=== PATIENT | female | born 1980 | race African-American/Black ===

== ENCOUNTER 2020-11-09 16:34 | Inpatient (IN) | payer OTHER ==
[2020-11-09 17:59] VITALS: BMI 27.4
[2020-11-09] MEDS ORDERED: NICOTINE POLACRILEX 2 MG GUM BUC PRN (20:40)
[2020-11-09] MEDS ORDERED: BISMUTH SUBSALICYLATE 524 MG/30 ML PO PRN (20:40)
[2020-11-09] MEDS ORDERED: METHOCARBAMOL 500 MG TABLET PO PRN (20:40)
[2020-11-09] MEDS ORDERED: ONDANSETRON *ODT* 4 MG TABLET SL PRN (20:40)
[2020-11-09] MEDS ORDERED: MAG HYDROX/AL HYDROX/SIMETH 30 ML UNIT-DOSE CUP PO PRN (20:40)
[2020-11-09] MEDS ORDERED: IBUPROFEN 400 MG TABLET (FP) PO PRN (20:40)
[2020-11-09] MEDS ORDERED: MENTHOL/PHENOL 1 EACH UD MM PRN (20:40)
[2020-11-09] MEDS ORDERED: ACETAMINOPHEN 325 MG TABLET (FP) PO PRN ×2 (20:40)
[2020-11-09] MEDS ORDERED: MAGNESIUM CITRATE 300 ML BOTTLE PO PRN (20:40)
[2020-11-09] MEDS ORDERED: MAGNESIUM HYDROX 2400MG/30ML ORAL SUSPENSION 30 ML CUP PO PRN (20:40)
[2020-11-09] MEDS ORDERED: diazePAM 5 MG TABLET PO PRN (20:43)
[2020-11-09] MEDS ORDERED: methaDONE HCL 10 MG TABLET (FOR DETOX USE ONLY) PO ONE (20:43)
[2020-11-09] MEDS ORDERED: cloNIDine HCL 0.1 MG TABLET PO PRN (20:43)
[2020-11-10] MEDS: MELATONIN 5 MG TABLETS PO SCH ×2 (00:12→22:27)
[2020-11-10] MEDS: THIAMINE HCL 100 MG TABLET (FP) PO SCH ×2 (00:13→22:26)
[2020-11-10] MEDS: diazePAM 5 MG TABLET PO SCH ×5 (00:23→22:27)
[2020-11-10] MEDS ORDERED: methaDONE HCL 10 MG TABLET (FOR DETOX USE ONLY) ONE (09:19)
[2020-11-10] MEDS: PRENATAL VITAMINS W/ FOLIC ACID TABLET (FP) PO SCH (10:40)
[2020-11-10] MEDS: NICOTINE 21 MG/24 HOURS TOPICAL PATCH TD SCH (10:43)
[2020-11-10 11:34] LABS: HEMATOCRIT 32.5 % (32.4-45.2); HEMOGLOBIN 10.8 GM/dL (10.7-15.3); MCH 27.7 pg (25.7-33.7); MCHC 33.2 g/dl (32.0-36.0); MEAN CELL VOLUME 83.5 fl (80-96); PLATELET COUNT 161 10^3/uL (134-434); RBC 3.89 M/mm3 (3.60-5.2); RDW 14.1 % (11.6-15.6); WHITE BLOOD COUNT 4.8 K/mm3 (4.0-10.0)
[2020-11-10 11:37] LABS: BLOOD UREA NITROGEN 7.8 mg/dL (7-18); CALCIUM 8.2 mg/dL (8.5-10.1)
[2020-11-10 11:38] LABS: ALBUMIN 2.8 g/dl (3.4-5.0)
[2020-11-10 11:41] LABS: CREATININE 0.8 mg/dL (0.55-1.3)
[2020-11-10 11:43] LABS: BILIRUBIN,TOTAL 0.1 mg/dL (0.2-1); TOT PROT 5.9 g/dl (6.4-8.2)
[2020-11-10] MEDS: metroNIDAZOLE 0.75% VAGINAL GEL 70 GM TUBE VG SCH (22:26)
[2020-11-11] MEDS: diazePAM 5 MG TABLET PO SCH ×3 (06:23→22:11)
[2020-11-11] MEDS ORDERED: methaDONE HCL 10 MG TABLET (FOR DETOX USE ONLY) PO ONE (10:00)
[2020-11-11] MEDS: PRENATAL VITAMINS W/ FOLIC ACID TABLET (FP) PO SCH (10:24)
[2020-11-11] MEDS ORDERED: NICOTINE 10 MG CARTRIDGE (INHALER) IH SCH (10:30)
[2020-11-11] MEDS: NICOTINE 21 MG/24 HOURS TOPICAL PATCH TD SCH (10:42)
[2020-11-11] MEDS ORDERED: NICOTINE 10 MG CARTRIDGE (INHALER) IH PRN (10:53)
[2020-11-11] MEDS: metroNIDAZOLE 0.75% VAGINAL GEL 70 GM TUBE VG SCH (22:12)
[2020-11-11] MEDS: MELATONIN 5 MG TABLETS PO SCH (22:12)
[2020-11-11] MEDS: THIAMINE HCL 100 MG TABLET (FP) PO SCH (22:12)
[2020-11-12] MEDS: diazePAM 5 MG TABLET PO SCH ×2 (05:43→19:17)
[2020-11-12] MEDS ORDERED: methaDONE HCL 10 MG TABLET (FOR DETOX USE ONLY) ONE (09:48)
[2020-11-12] MEDS ORDERED: cloNIDine HCL 0.1 MG TABLET PO PRN (10:04)
[2020-11-12] MEDS: hydrOXYzine PAMOATE 25 MG CAPSULE (FP) PO PRN ×2 (11:11→18:06)
[2020-11-12] MEDS: PRENATAL VITAMINS W/ FOLIC ACID TABLET (FP) PO SCH (11:11)
[2020-11-12 12:17] LABS: URINE APPEARANCE CLEAR; URINE BILIRUBIN NEGATIVE (NEGATIVE); URINE COLOR YELLOW; URINE GLUCOSE (UA) NEGATIVE (NEGATIVE); URINE KETONE NEGATIVE (NEGATIVE); URINE LEUK ESTERASE NEGATIVE (NEGATIVE); URINE NITRITE NEGATIVE (NEGATIVE); URINE PROTEIN NEGATIVE (NEGATIVE); URINE UROBILINOGEN 0.2 mg/dL (0.2-1.0)
[2020-11-12 12:18] LABS: EPI CELLS 7 /uL (0-25.1); HYALINE CASTS 0 /uL (0-3.1); URINE BACTERIA 15 /uL (0-1359); URINE RBC 3 /uL (0-23.9); URINE WBC 4 /uL (0-25.8)
[2020-11-12] MEDS: MELATONIN 5 MG TABLETS PO SCH (22:29)
[2020-11-12] MEDS: THIAMINE HCL 100 MG TABLET (FP) PO SCH (22:29)
[2020-11-12] MEDS: metroNIDAZOLE 0.75% VAGINAL GEL 70 GM TUBE VG SCH (23:26)
[2020-11-13] MEDS ORDERED: diazePAM 5 MG TABLET PO ONE (06:00)
[2020-11-13] MEDS ORDERED: methaDONE HCL 10 MG TABLET (FOR DETOX USE ONLY) PO ONE (10:00)
[2020-11-13] MEDS: PRENATAL VITAMINS W/ FOLIC ACID TABLET (FP) PO SCH (10:12)
[2020-11-13 13:38] VITALS: TEMP 97.2
[2020-11-13 17:24] VITALS: BP 100/65; PULSE 69
== END 2020-11-13 18:45 | disposition left against medical advice (07) | DRG 770 ==
LOC: YASAS 16:34 → Y3N 22:40
PROVIDERS: ADMIT Allergy & Immunology; ATTEND Allergy & Immunology
PROC: HZ2ZZZZ Detoxification Services for Substance Abuse Treatment (ICD-10-PCS; principal; 2020-11-09)
DX: F10.230 Alcohol dependence with withdrawal, uncomplicated (principal); F11.23 Opioid dependence with withdrawal; F13.230 Sedative, hypnotic or anxiolytic dependence with withdrawal, uncomplicated; F14.10 Cocaine abuse, uncomplicated; F17.210 Nicotine dependence, cigarettes, uncomplicated; F41.9 Anxiety disorder, unspecified; F19.280 Other psychoactive substance dependence with psychoactive substance-induced anxiety disorder; F19.282 Other psychoactive substance dependence with psychoactive substance-induced sleep disorder; F19.24 Other psychoactive substance dependence with psychoactive substance-induced mood disorder; F32.9 Major depressive disorder, single episode, unspecified; K21.9 Gastro-esophageal reflux disease without esophagitis; Z56.0 Unemployment, unspecified; Z88.8 Allergy status to other drugs, medicaments and biological substances
CPT/HCPCS: 36415; 80053; 81003; 85027; 86780; 93005; 93010; C9803; U0003; U0005

== ENCOUNTER 2020-12-17 11:39 | Inpatient (IN) | payer OTHER ==
[2020-12-17] MEDS ORDERED: BISMUTH SUBSALICYLATE 262 MG/15 ML BTL PO PRN (12:17)
[2020-12-17] MEDS ORDERED: ACETAMINOPHEN 325 MG TABLET (FP) PO PRN ×2 (12:17)
[2020-12-17] MEDS ORDERED: MAGNESIUM HYDROX 2400MG/30ML ORAL SUSPENSION 30 ML CUP PO PRN (12:17)
[2020-12-17] MEDS ORDERED: MENTHOL/PHENOL 1 EACH UD MM PRN (12:17)
[2020-12-17] MEDS ORDERED: ONDANSETRON *ODT* 4 MG TABLET SL PRN (12:17)
[2020-12-17] MEDS ORDERED: IBUPROFEN 400 MG TABLET (FP) PO PRN (12:17)
[2020-12-17] MEDS ORDERED: MAGNESIUM CITRATE 300 ML BOTTLE PO PRN (12:17)
[2020-12-17] MEDS ORDERED: methaDONE HCL 10 MG TABLET (FOR DETOX USE ONLY) PO ONE (12:17)
[2020-12-17] MEDS ORDERED: cloNIDine HCL 0.1 MG TABLET PO PRN (12:17)
[2020-12-17] MEDS ORDERED: LORazepam 1 MG TABLET PO PRN (12:17)
[2020-12-17 13:04] VITALS: BMI 28.1
[2020-12-17] MEDS ORDERED: hydrOXYzine PAMOATE 25 MG CAPSULE (FP) PO SCH (14:00)
[2020-12-17] MEDS: NICOTINE 14 MG/24 HOURS TOPICAL PATCH TD SCH (15:26)
[2020-12-17] MEDS: PRENATAL VITAMINS W/ FOLIC ACID TABLET (FP) PO SCH (15:26)
[2020-12-17 17:34] LABS: HEMATOCRIT 38.9 % (32.4-45.2); HEMOGLOBIN 12.7 GM/dL (10.7-15.3); MCHC 32.8 g/dl (32.0-36.0); MEAN CELL VOLUME 85.4 fl (80-96); MEAN PLT VOLUME 8.9 fl (7.5-11.1); PLATELET COUNT 224 10^3/uL (134-434); RBC 4.56 M/mm3 (3.60-5.2); RDW 13.8 % (11.6-15.6); WHITE BLOOD COUNT 5.4 K/mm3 (4.0-10.0)
[2020-12-17] MEDS: LORazepam 2 MG TABLET PO SCH ×2 (17:43→22:20)
[2020-12-17] MEDS: NICOTINE 10 MG CARTRIDGE (INHALER) IH PRN (17:45)
[2020-12-17 18:05] LABS: ALBUMIN 3.7 g/dl (3.4-5.0); CALCIUM 9.2 mg/dL (8.5-10.1)
[2020-12-17 18:06] LABS: BLOOD UREA NITROGEN 6.9 mg/dL (7-18)
[2020-12-17 18:09] LABS: CREATININE 0.8 mg/dL (0.55-1.3)
[2020-12-17 18:10] LABS: BILIRUBIN,TOTAL 0.2 mg/dL (0.2-1); TOT PROT 7.5 g/dl (6.4-8.2)
[2020-12-17] MEDS: QUEtiapine FUMARATE 50 MG TABLET PO SCH (22:20)
[2020-12-17] MEDS: THIAMINE HCL 100 MG TABLET (FP) PO SCH (22:20)
[2020-12-17] MEDS: MELATONIN 5 MG TABLETS PO SCH (22:20)
[2020-12-18] MEDS: LORazepam 2 MG TABLET PO SCH ×4 (06:05→22:15)
[2020-12-18] MEDS ORDERED: methaDONE HCL 10 MG TABLET (FOR DETOX USE ONLY) ONE (10:02)
[2020-12-18] MEDS: NICOTINE 14 MG/24 HOURS TOPICAL PATCH TD SCH (10:24)
[2020-12-18] MEDS: PRENATAL VITAMINS W/ FOLIC ACID TABLET (FP) PO SCH (10:25)
[2020-12-18] MEDS: hydrOXYzine PAMOATE 25 MG CAPSULE (FP) PO PRN (22:15)
[2020-12-18] MEDS: THIAMINE HCL 100 MG TABLET (FP) PO SCH (22:15)
[2020-12-18] MEDS: MELATONIN 5 MG TABLETS PO SCH (22:15)
[2020-12-18] MEDS: QUEtiapine FUMARATE 50 MG TABLET PO SCH (22:15)
[2020-12-19] MEDS: LORazepam 1 MG TABLET PO SCH ×4 (06:38→22:18)
[2020-12-19] MEDS ORDERED: methaDONE HCL 10 MG TABLET (FOR DETOX USE ONLY) PO ONE (10:00)
[2020-12-19] MEDS: NICOTINE 14 MG/24 HOURS TOPICAL PATCH TD SCH (10:43)
[2020-12-19] MEDS: PRENATAL VITAMINS W/ FOLIC ACID TABLET (FP) PO SCH (10:43)
[2020-12-19] MEDS: MAG HYDROX/AL HYDROX/SIMETH 30 ML UNIT-DOSE CUP PO PRN (17:36)
[2020-12-19] MEDS: hydrOXYzine PAMOATE 25 MG CAPSULE (FP) PO PRN (17:36)
[2020-12-19] MEDS: NICOTINE 10 MG CARTRIDGE (INHALER) IH PRN (22:17)
[2020-12-19] MEDS: MELATONIN 5 MG TABLETS PO SCH (22:18)
[2020-12-19] MEDS: QUEtiapine FUMARATE 50 MG TABLET PO SCH (22:18)
[2020-12-19] MEDS: THIAMINE HCL 100 MG TABLET (FP) PO SCH (22:18)
[2020-12-19] MEDS: METHOCARBAMOL 500 MG TABLET PO PRN (22:20)
[2020-12-20] MEDS ORDERED: LORazepam 0.5 MG TABLET PO PRN
[2020-12-20] MEDS: LORazepam 0.5 MG TABLET PO SCH ×4 (07:02→22:14)
[2020-12-20] MEDS ORDERED: methaDONE HCL 10 MG TABLET (FOR DETOX USE ONLY) ONE (09:33)
[2020-12-20] MEDS: PRENATAL VITAMINS W/ FOLIC ACID TABLET (FP) PO SCH (10:22)
[2020-12-20] MEDS: hydrOXYzine PAMOATE 25 MG CAPSULE (FP) PO PRN (10:24)
[2020-12-20] MEDS: NICOTINE 14 MG/24 HOURS TOPICAL PATCH TD SCH (10:25)
[2020-12-20] MEDS: NICOTINE 10 MG CARTRIDGE (INHALER) IH PRN (17:44)
[2020-12-20] MEDS: QUEtiapine FUMARATE 50 MG TABLET PO SCH (22:13)
[2020-12-20] MEDS: THIAMINE HCL 100 MG TABLET (FP) PO SCH (22:13)
[2020-12-20] MEDS: MELATONIN 5 MG TABLETS PO SCH (22:13)
[2020-12-20] MEDS: METHOCARBAMOL 500 MG TABLET PO PRN (22:14)
[2020-12-21] MEDS ORDERED: LORazepam 0.5 MG TABLET PO ONE (05:00)
[2020-12-21] MEDS ORDERED: methaDONE HCL 10 MG TABLET (FOR DETOX USE ONLY) PO ONE (10:00)
[2020-12-21] MEDS: NICOTINE 14 MG/24 HOURS TOPICAL PATCH TD SCH (10:10)
[2020-12-21] MEDS: PRENATAL VITAMINS W/ FOLIC ACID TABLET (FP) PO SCH (10:10)
[2020-12-21] MEDS: MAG HYDROX/AL HYDROX/SIMETH 30 ML UNIT-DOSE CUP PO PRN (10:11)
[2020-12-21] MEDS: hydrOXYzine PAMOATE 25 MG CAPSULE (FP) PO PRN (10:13)
[2020-12-21] MEDS: LORATADINE 10 MG TABLET PO SCH (11:09)
[2020-12-21] MEDS: QUEtiapine FUMARATE 50 MG TABLET PO SCH (22:10)
[2020-12-21] MEDS: MELATONIN 5 MG TABLETS PO SCH (22:10)
[2020-12-21] MEDS: THIAMINE HCL 100 MG TABLET (FP) PO SCH (22:10)
[2020-12-22] MEDS: NICOTINE 10 MG CARTRIDGE (INHALER) IH PRN (08:24)
[2020-12-22 09:19] VITALS: BP 101/65; PULSE 77; TEMP 97.1
[2020-12-22] MEDS: LORATADINE 10 MG TABLET PO SCH (10:42)
[2020-12-22] MEDS: NICOTINE 14 MG/24 HOURS TOPICAL PATCH TD SCH (10:42)
[2020-12-22] MEDS: PRENATAL VITAMINS W/ FOLIC ACID TABLET (FP) PO SCH (10:42)
== END 2020-12-22 12:48 | disposition other institution (70) | DRG 773 ==
LOC: YASAS 11:39 → Y3N 13:19
PROVIDERS: ADMIT Allergy & Immunology; ATTEND Allergy & Immunology
PROC: HZ2ZZZZ Detoxification Services for Substance Abuse Treatment (ICD-10-PCS; principal; 2020-12-17)
DX: F11.23 Opioid dependence with withdrawal (principal); F10.230 Alcohol dependence with withdrawal, uncomplicated; F13.230 Sedative, hypnotic or anxiolytic dependence with withdrawal, uncomplicated; F14.20 Cocaine dependence, uncomplicated; F17.210 Nicotine dependence, cigarettes, uncomplicated; F19.280 Other psychoactive substance dependence with psychoactive substance-induced anxiety disorder; F19.282 Other psychoactive substance dependence with psychoactive substance-induced sleep disorder; F19.24 Other psychoactive substance dependence with psychoactive substance-induced mood disorder; F32.9 Major depressive disorder, single episode, unspecified; F41.9 Anxiety disorder, unspecified; K21.9 Gastro-esophageal reflux disease without esophagitis; K29.70 Gastritis, unspecified, without bleeding; Z88.8 Allergy status to other drugs, medicaments and biological substances
CPT/HCPCS: 36415; 80053; 81025; 85027; 86780; 87086; C9803; U0003; U0005

== ENCOUNTER 2020-12-22 13:29 | Inpatient (IN) | payer OTHER ==
[2020-12-22] MEDS ORDERED: P-EPHED 60MG/TRIPROLIDI 2.5MG TABLET PO PRN (13:46)
[2020-12-22] MEDS ORDERED: MAGNESIUM HYDROX 2400MG/30ML ORAL SUSPENSION 30 ML CUP PO PRN (13:46)
[2020-12-22] MEDS ORDERED: MAGNESIUM CITRATE 300 ML BOTTLE PO PRN (13:46)
[2020-12-22] MEDS ORDERED: MENTHOL/PHENOL 1 EACH UD MM PRN (13:46)
[2020-12-22] MEDS ORDERED: guaiFENesin 200 MG/10 ML 10 ML UNIT-DOSE CUPS PO PRN (13:46)
[2020-12-22] MEDS ORDERED: LOPERAMIDE HCL 2 MG CAPSULE PO PRN (13:46)
[2020-12-22] MEDS ORDERED: MAG HYDROX/AL HYDROX/SIMETH 30 ML UNIT-DOSE CUP PO PRN (13:46)
[2020-12-22] MEDS ORDERED: ACETAMINOPHEN 325 MG TABLET (FP) PO PRN (13:46)
[2020-12-22] MEDS: IBUPROFEN 400 MG TABLET (FP) PO PRN (19:05)
[2020-12-22] MEDS: QUEtiapine FUMARATE 50 MG TABLET PO SCH (21:02)
[2020-12-22] MEDS: MELATONIN 5 MG TABLETS PO SCH (21:02)
[2020-12-22] MEDS: THIAMINE HCL 100 MG TABLET (FP) PO SCH (22:16)
[2020-12-23] MEDS: NICOTINE 10 MG CARTRIDGE (INHALER) IH PRN (10:33)
[2020-12-23] MEDS: NICOTINE 7 MG/24 HOURS TOPICAL PATCH TD SCH (10:33)
[2020-12-23] MEDS: PRENATAL VITAMINS W/ FOLIC ACID TABLET (FP) PO SCH (10:33)
[2020-12-23] MEDS: LORATADINE 10 MG TABLET PO SCH (10:34)
[2020-12-23] MEDS: SIMETHICONE 80 MG TAB.CHEW (FP) PO PRN ×2 (14:25→22:39)
[2020-12-23] MEDS: QUEtiapine FUMARATE 50 MG TABLET PO SCH (21:06)
[2020-12-23] MEDS: THIAMINE HCL 100 MG TABLET (FP) PO SCH (21:06)
[2020-12-23] MEDS: MELATONIN 5 MG TABLETS PO SCH (21:07)
[2020-12-23] MEDS: IBUPROFEN 400 MG TABLET (FP) PO PRN (21:09)
[2020-12-24] MEDS: PRENATAL VITAMINS W/ FOLIC ACID TABLET (FP) PO SCH (10:31)
[2020-12-24] MEDS: hydrOXYzine PAMOATE 25 MG CAPSULE (FP) PO PRN ×2 (10:32→21:55)
[2020-12-24] MEDS: NICOTINE 7 MG/24 HOURS TOPICAL PATCH TD SCH (10:32)
[2020-12-24] MEDS: LORATADINE 10 MG TABLET PO SCH (10:32)
[2020-12-24] MEDS: SIMETHICONE 80 MG TAB.CHEW (FP) PO PRN ×2 (10:32→21:55)
[2020-12-24] MEDS: THIAMINE HCL 100 MG TABLET (FP) PO SCH (21:55)
[2020-12-24] MEDS: QUEtiapine FUMARATE 50 MG TABLET PO SCH (21:55)
[2020-12-24] MEDS: IBUPROFEN 400 MG TABLET (FP) PO PRN (21:56)
[2020-12-24] MEDS: MELATONIN 5 MG TABLETS PO SCH (22:04)
[2020-12-25] MEDS: SIMETHICONE 80 MG TAB.CHEW (FP) PO PRN ×2 (08:14→21:15)
[2020-12-25] MEDS: hydrOXYzine PAMOATE 25 MG CAPSULE (FP) PO PRN ×2 (10:40→21:14)
[2020-12-25] MEDS: PRENATAL VITAMINS W/ FOLIC ACID TABLET (FP) PO SCH (10:40)
[2020-12-25] MEDS: NICOTINE 7 MG/24 HOURS TOPICAL PATCH TD SCH (10:40)
[2020-12-25] MEDS: LORATADINE 10 MG TABLET PO SCH (10:40)
[2020-12-25] MEDS: QUEtiapine FUMARATE 50 MG TABLET PO SCH (21:14)
[2020-12-25] MEDS: THIAMINE HCL 100 MG TABLET (FP) PO SCH (21:14)
[2020-12-25] MEDS: IBUPROFEN 400 MG TABLET (FP) PO PRN (22:43)
[2020-12-25] MEDS: MELATONIN 5 MG TABLETS PO SCH (23:19)
[2020-12-26] MEDS: PRENATAL VITAMINS W/ FOLIC ACID TABLET (FP) PO SCH (10:24)
[2020-12-26] MEDS: NICOTINE 7 MG/24 HOURS TOPICAL PATCH TD SCH (10:24)
[2020-12-26] MEDS: NICOTINE 10 MG CARTRIDGE (INHALER) IH PRN (10:24)
[2020-12-26] MEDS: hydrOXYzine PAMOATE 25 MG CAPSULE (FP) PO PRN (10:24)
[2020-12-26] MEDS: LORATADINE 10 MG TABLET PO SCH (10:24)
[2020-12-26] MEDS: SIMETHICONE 80 MG TAB.CHEW (FP) PO PRN (18:14)
[2020-12-26] MEDS: QUEtiapine FUMARATE 50 MG TABLET PO SCH (21:05)
[2020-12-26] MEDS: THIAMINE HCL 100 MG TABLET (FP) PO SCH (21:05)
[2020-12-26] MEDS: MELATONIN 5 MG TABLETS PO SCH (21:06)
[2020-12-26] MEDS: IBUPROFEN 400 MG TABLET (FP) PO PRN (21:07)
[2020-12-27 07:39] VITALS: BP 105/65; PULSE 72; TEMP 97.6
[2020-12-27] MEDS: IBUPROFEN 400 MG TABLET (FP) PO PRN (08:54)
[2020-12-27] MEDS: hydrOXYzine PAMOATE 25 MG CAPSULE (FP) PO PRN (10:36)
[2020-12-27] MEDS: PRENATAL VITAMINS W/ FOLIC ACID TABLET (FP) PO SCH (10:36)
[2020-12-27] MEDS: LORATADINE 10 MG TABLET PO SCH (10:36)
[2020-12-27] MEDS: NICOTINE 7 MG/24 HOURS TOPICAL PATCH TD SCH (10:36)
[2020-12-27] MEDS: SIMETHICONE 80 MG TAB.CHEW (FP) PO PRN (13:55)
== END 2020-12-27 15:36 | disposition home or self-care (01) | DRG 772 ==
LOC: YASAS 13:29 → Y5N 13:30
PROVIDERS: ADMIT Allergy & Immunology; ATTEND Allergy & Immunology
PROC: HZ42ZZZ Group Counseling for Substance Abuse Treatment, Cognitive-Behavioral (ICD-10-PCS; principal; 2020-12-22)
DX: F11.20 Opioid dependence, uncomplicated (principal); F10.20 Alcohol dependence, uncomplicated; F14.20 Cocaine dependence, uncomplicated; F13.20 Sedative, hypnotic or anxiolytic dependence, uncomplicated; F19.280 Other psychoactive substance dependence with psychoactive substance-induced anxiety disorder; F17.210 Nicotine dependence, cigarettes, uncomplicated; F41.9 Anxiety disorder, unspecified; F32.A Depression, unspecified; F19.282 Other psychoactive substance dependence with psychoactive substance-induced sleep disorder; G47.00 Insomnia, unspecified; Z88.1 Allergy status to other antibiotic agents